=== PATIENT | male | born 1990 | race Caucasian/White ===

== ENCOUNTER → 2017-12-31 | Outpatient (CLI) | payer BC ==
--- NOTE | 2018-01-02 19:32 | Electroencephalogram ---
DATE OF STUDY: December 31, 2017 REQUESTING PHYSICIAN: Dr. Yoselin Du. PATIENT HISTORY: This 27-year-old man with history of excessive daytime drowsiness is having an EEG for evaluation of epileptiform activity. The patient is not taking any medications that might effect the EEG. TECHNIQUE: This is a routine, portable EEG, recorded digitally, using the international 10/20 electrode placement system, and done in the laboratory with the patient awake. The EEG is adequate for interpretation. DESCRIPTION: Well-organized, well-sustained 9-10 Hz activity is best seen symmetrically in the posterior head regions. No focal or epileptiform activity is recorded. Sleep is not recorded. Photic stimulation produces a driving response. Hyperventilation does not produce slowing. INTERPRETATION: This EEG is normal with the patient awake. No epileptiform discharges are seen. Job#: [id number]
== END ==
LOC: CARD 12:46
PROVIDERS: ATTEND Psychiatry & Neurology Clinical Neurophysiology
DX: G40.89 Other seizures (principal)
CPT/HCPCS: 95812